=== PATIENT | female | born 1985 | race Two or more races ===

== ENCOUNTER → 2024-07-27 | Outpatient (CLI) | payer MEDICAID, SELFPAY ==
--- NOTE | 2024-07-27 10:07 | XR_ITS ---
Examination: Lumbar spine 3 views Technique one AP lateral coned lateral lower lumbar spine 3 views Exam date and time: July 27, 2024 1046 hours INDICATIONS: Low back pain after falling several years ago. FINDINGS: Satisfactory alignment lumbar vertebral bodies No lumbar fracture or significant lumbar disc narrowing Mild lumbar spondylosis IMPRESSION: No lumbar fracture
--- NOTE | 2024-07-27 10:07 | XR_ITS ---
Examination: Foot, right, 3 views Technique: AP, oblique, lateral views foot, 3 views Date and time of exam: July 27, 2024 1041 hours INDICATIONS: Right foot swelling and pain beginning several years ago. FINDINGS: Mild narrowing first metatarsophalangeal joint. No fracture or dislocation No cortical bone destruction No opaque foreign body IMPRESSION: Mild narrowing first metatarsophalangeal joint No fracture No erosive arthritis
== END | disposition home or self-care (01) ==
LOC: CDIM 09:52
PROVIDERS: PCP Obstetrics & Gynecology; Referring Provider Obstetrics & Gynecology; Visit Provider Obstetrics & Gynecology
DX: M54.50 Low back pain, unspecified (principal); M25.871 Other specified joint disorders, right ankle and foot
CPT/HCPCS: 72100; 73630